=== PATIENT | male | born 1970 | race African-American/Black ===

== ENCOUNTER 2017-06-15 19:31 | Emergency (ER) | payer OTHER ==
[~2017-06-15] VITALS: Ht 162.6 cm; Wt 104.3 kg
== END 2017-06-15 20:35 | disposition home or self-care (01) ==
LOC: CFTX 19:31 → CED 19:31 → CFTX 20:03
DX: M54.42 Lumbago with sciatica, left side (principal); F17.210 Nicotine dependence, cigarettes, uncomplicated; Z98.890 Other specified postprocedural states
CPT/HCPCS: 99283